=== PATIENT | female | born 1955 | race Caucasian/White ===

== ENCOUNTER → 2021-06-02 14:28 | Outpatient (CLI) | payer OTHER, SELFPAY ==
--- NOTE | 2021-06-02 12:22 | DI.RAD_ITS ---
Exam(s) XR WRIST LT COMPLETE EXAM: XR WRIST LT COMPLETE CLINICAL HISTORY: Fall onto wrist, suspect Colle's fracture, WRIST INJURY, S69.90XA. TECHNIQUE: 2D digital imaging was performed. Three views. COMPARISON: No exams were available for comparison FINDINGS: BONES: There is a nondisplaced fracture seen extending transversely through the distal radius. There is no apparent extension to the articular surface. the distal ulna and carpal bones including navic ular appear intact.. No bony destructive lesion is seen. JOINTS: The carpal bones are normally aligned. SOFT TISSUE: Swelling around wrist. IMPRESSION: Nondisplaced fracture of the distal radius. DATA REPOSITORY: RADIATION DOSE DELIVERED:
== END ==
PROVIDERS: PCP Internal Medicine; Visit Provider Family Medicine
DX: S69.82XA Other specified injuries of left wrist, hand and finger(s), initial encounter; S52.592A Other fractures of lower end of left radius, initial encounter for closed fracture; X58.XXXA Exposure to other specified factors, initial encounter
CPT/HCPCS: 73110

== ENCOUNTER → 2021-11-20 02:13 | Outpatient (CLI) | payer OTHER, SELFPAY ==
--- NOTE | 2021-11-20 08:15 | DI.DEXA_ITS ---
Exam(s) XR DEXA BONE DENSITY W/WO SHAHRAM EXAM: XR DEXA BONE DENSITY W/WO SHAHRAM CLINICAL HISTORY: FX LT RADIUS, DISORDER OF BONE DENSITY, S52.502A,M85.80 TECHNIQUE: COMPARISON: No exams were available for comparison FINDINGS: Lateral Spine Image: Unremarkable. No compression deformities identified. Left hip: Total T-Score: -1.1 Total Z-Score: 0.2 T- and Z-scores: Findings are consistent with osteopenia. Lumbar Spine: Total T-Score: -0.9 Total Z-Score: 1.0 T- and Z-scores: Within normal limits. IMPRESSION: No evidence of osteoporosis.
== END ==
PROVIDERS: PCP Internal Medicine; Visit Provider Internal Medicine
DX: M85.88 Other specified disorders of bone density and structure, other site (principal); Z13.820 Encounter for screening for osteoporosis
CPT/HCPCS: 77080

== ENCOUNTER 2022-04-27 10:05 | Outpatient (REF) | payer OTHER, SELFPAY ==
[2022-04-27 16:21] LABS: HCT 39.8 % (36.0-46.0); MCHC 32.7 % (32.0-36.0); MCV 86 fL (80-95); MPV 10.5 fL (8.0-11.0); Platelet Count 220 10^3/uL (130-400); RBC 4.65 10^6/uL (3.93-5.22); RDW 12.5 % (11.7-14.6); RDW-SD 38.9 fL; WBC 5.03 10^3/uL (4.4-10.8)
[2022-04-27 16:59] LABS: ALT 14 U/L (14-59); AST 17 U/L (15-37); Albumin 3.7 g/dL (3.4-5.0); Alkaline Phosphatase 75 U/L (46-116); Anion Gap 7.9 mmol/L (3-11); BUN 13 mg/dL (7-18); Bilirubin, Total 0.4 mg/dL (0.2-1.0); CO2 30.1 mmol/L (21.0-32.0); CREATININE 0.9 mg/dL (0.55-1.02); Calcium 9.3 mg/dL (8.5-10.1); Calculated LDL 107 mg/dL (<100); Chloride 106 mmol/L (98-107); Cholesterol 195 mg/dL (<200); Estimated GFR 70.07 (mL/min/1.73m2); Glucose 82 mg/dL (74-106); HDL Cholesterol 73 mg/dL (40-60); Sodium 144 mmol/L (136-145); Total Protein 7.4 g/dL (6.4-8.2); Triglyceride 77 mg/dL (<150)
[2022-04-27 17:25] LABS: Vitamin D 25 Total 69.3 ng/mL (30-100)
== END 2022-04-27 10:06 | disposition home or self-care (01) ==
LOC: LBN 10:05
PROVIDERS: PCP Nurse Practitioner Adult Health; Visit Provider Nurse Practitioner
DX: F41.8 Other specified anxiety disorders (principal); M85.88 Other specified disorders of bone density and structure, other site; Z13.220 Encounter for screening for lipoid disorders
CPT/HCPCS: 80053; 80061; 82306; 85027

== ENCOUNTER 2024-06-06 16:35 | Outpatient (CLI) | payer OTHER, SELFPAY ==
--- NOTE | 2024-06-06 15:00 | DI.RAD_ITS ---
Exam(s) XR KNEE RT 3V AP,LAT,KELLIE EXAM: XR KNEE RT 3V AP,LAT,KELLIE CLINICAL HISTORY: M25.561,M25.562, Progressive bilatera knee pain- OA eval. TECHNIQUE: 2D digital imaging was performed. COMPARISON: No exams were available for comparison FINDINGS: 3 views There is no evidence of fracture nor obvious joint effusion. There are mild degenerative changes in the medial compartment. Lateral compartment appears unremarkable. Mild degenerative change in the p atellofemoral compartment Bone density normal. No osseous lesions. IMPRESSION: Some degenerative change in the medial compartment noted DATA REPOSITORY: RADIATION DOSE DELIVERED:
--- NOTE | 2024-06-06 15:00 | DI.RAD_ITS ---
Exam(s) XR KNEE LT 3V AP,LAT,KELLIE EXAM: XR KNEE LT 3V AP,LAT,KELLIE CLINICAL HISTORY: M25.561,M25.562, Bilateral knee pain- OA eval?. TECHNIQUE: 2D digital imaging was performed. COMPARISON: CR XR KNEE RT 3V AP,LAT,KELLIE from 06/06/2024 FINDINGS: 3 views No evidence of fracture or joint effusion. There are no degenerative changes evident in the medial l ateral compartments nor obvious degenerative change in the patellofemoral compartment. Bone density normal. No osseous lesions. No chondrocalcinosis. IMPRESSION: No significant osseous findings in the left knee. DATA REPOSITORY: RADIATION DOSE DELIVERED:
== END 2024-06-06 16:55 ==
LOC: DI 16:36
PROVIDERS: PCP Nurse Practitioner Adult Health; Visit Provider Nurse Practitioner Family
DX: M25.561 Pain in right knee (principal); M25.562 Pain in left knee
CPT/HCPCS: 73562

== ENCOUNTER 2024-06-14 11:52 | Outpatient (CLI) | payer OTHER, SELFPAY ==
--- NOTE | 2024-06-14 11:45 | RT.EKG_ITS ---
APPROVED REPORT Exam: Resting ECG Reason for Exam: r/o underlying dysrhythmia Patient Location: O HR:49 bpm ECG Measurements Heart Rate 49 AXIS TN 140 P 50 QRSd 108 QRS -39 QT 461 T 35 QTc 417 Conclusion Sinus bradycardia...rate< 50 Left axis deviation...QRS axis (-30,-90)
== END 2024-06-14 11:53 | disposition home or self-care (01) ==
LOC: DI.KIM 11:59
PROVIDERS: PCP Nurse Practitioner Adult Health; Visit Provider Nurse Practitioner Adult Health
DX: R03.0 Elevated blood-pressure reading, without diagnosis of hypertension (principal); R42 Dizziness and giddiness; R00.9 Unspecified abnormalities of heart beat
CPT/HCPCS: 93010